=== PATIENT | male | born 2005 | race Two or more races ===

== ENCOUNTER 2025-01-20 15:20 | Emergency (ER) | payer OTHER ==
[~2025-01-20] VITALS: Ht 160 cm; Wt 72.6 kg
[2025-01-20] MEDS ORDERED: ESTRACE2 MG PO (16:22)
[2025-01-20] MEDS ORDERED: ALDACTONE50 MG PO (16:23)
[2025-01-20] MEDS ORDERED: LORazepam 0.5 MG TABLET PO ONE (18:15)
[2025-01-20 18:34] LABS: BASO % 0.3 % (0.1-1.2); EOS # 0.14 (0.04-0.54); EOS % 2.3 % (0.7-7.0); HEMATOCRIT 38.6 % (40.1-51.0); HEMOGLOBIN 13.4 g/dL (13.7-17.5); LYMPH # 1.94 (1.18-3.74); LYMPH % 31.8 % (19.3-53.1); MONO # 0.53 (0.24-0.82); MONO % 8.7 % (4.7-12.5); NEUT # 3.47 (1.56-6.13); NEUT % 56.7 % (34.0-71.1); PLATELET COUNT 215 K/uL (163-369); RED BLOOD COUNT 4.47 M/uL (4.63-6.08); RED CELL DISTRIBUTION WIDTH 11.9 % (11.6-14.4)
[2025-01-20 19:00] LABS: ALBUMIN 4.2 gm/dL (3.4-5.0); BILIRUBIN TOTAL 0.71 mg/dL (0.3-1.2); CALCIUM 9.4 mg/dL (8.5-10.1); CREATININE SERUM 0.87 mg/dL (0.70-1.30); GFR 111.87; GLOBULINA 3.6 G/DL (2.4-3.5); POTASSIUM 4.03 mEq/L (3.5-5.1); TOTAL PROTEIN 7.8 gm/dL (6.4-8.2)
[2025-01-20 19:44] LABS: INFLUENZA A AG NEGATIVE (NEGATIVE); INFLUENZA B AG NEGATIVE (NEGATIVE)
[2025-01-20 19:53] LABS: COVID-19 AG NEGATIVE (NEGATIVE)
[2025-01-20 20:59] LABS: PH,URINE 7.5 (5.0-8.0); URINE APPEARANCE Clear; URINE BILIRRUBIN Negative (NEGATIVE); URINE BLOOD Negative; URINE COLOR Yellow; URINE GLUCOSE Negative (NEGATIVE); URINE KETONE Negative (NEGATIVE); URINE LEUKOCYTE Negative; URINE NITRATE Negative; URINE PROTEIN Negative (NEGATIVE)
[2025-01-20 21:13] LABS: COCAINE NEGATIVE (NEGATIVE); METHADONE NEGATIVE (NEGATIVE); OPIATES NEGATIVE (NEGATIVE); THC ( Cannabinoids) NEGATIVE (NEGATIVE)
[2025-01-20 21:23] LABS: URINE BACTERIA 1.2 uL (0.0-1933); URINE RBC 0.5 uL (0.0-20.8); URINE WBC 1.5 uL (0.0-23.2)
== END 2025-01-20 22:31 | disposition designated cancer center or children's hospital (05) ==
LOC: ER 15:47
PROVIDERS: Emergency Medicine
DX: F41.9 Anxiety disorder, unspecified (principal); F32.A Depression, unspecified; R45.851 Suicidal ideations; Z20.822 Contact with and (suspected) exposure to COVID-19